=== PATIENT | female | born 1980 | race Caucasian/White ===

== ENCOUNTER 2016-11-21 15:19 | Emergency (ER) | payer MEDICAID ==
[~2016-11-21] VITALS: Ht 170.2 cm; Wt 81.8 kg
[~2016-11-21 15:19] MED LIST: AMOXICILLIN 50500 MG PO; CEPHALEXIN500 M1 PO; COLACE 100100 MG/CAP PO; LEVOXYL0.075 MG PO; NIGHT-TIME COL300 ML PO; NO HOME MEDICATIONS; NORCO 325 MG-51 TAB PO; NORCO 325 MG-7.1 TAB PO; OMNICEF 300MG300 MG PO; OXYCODONE5 M1 PO; PERCOCET 325 MG1 TA2 PO; PRENATAL1 TA2 PO; PYRIDIUM200 M1 PO; ZOFRAN 4MG T4 MG/TAB PO; ZOFRAN ODT4 MG PO
[2016-11-21 15:21] VITALS: BP 126/72; PULSE 68; TEMP 98.5
[2016-11-21] MEDS ORDERED: SYNTHROID0.05 MG/TA PO (15:23)
[2016-11-21] MEDS ORDERED: ADIPEX-P37.5 MG PO (15:23)
[2016-11-21] MEDS ORDERED: ILOTYCIN5 MG/GM OP (15:45)
[2016-11-21] MEDS ORDERED: FLUOCINOLONE ACE1 TU TP (22:02)
[2017-02-11] MEDS ORDERED: WELLBUTRIN XL150 MG PO (13:41)
[2017-02-11] MEDS ORDERED: ADIPEX-P37.5 MG PO (17:37)
== END 2016-11-21 15:50 | disposition home or self-care (01) ==
LOC: COL.ER 15:19
DX: H01.001 Unspecified blepharitis right upper eyelid (principal)

== ENCOUNTER 2016-11-21 21:26 | Emergency (ER) | payer MEDICAID ==
[~2016-11-21] VITALS: Ht 170.2 cm; Wt 84.1 kg
[~2016-11-21 21:26] MED LIST changes: +ADIPEX-P37.5 MG PO; +ILOTYCIN5 MG/GM OP; +SYNTHROID0.05 MG/TA PO
[2016-11-21 21:27] VITALS: TEMP 98.7
[2016-11-21] MEDS ORDERED: FLUOCINOLONE ACE1 TU TP (22:02)
[2016-11-21 22:10] VITALS: BP 130/80; PULSE 67
[2017-02-11] MEDS ORDERED: WELLBUTRIN XL150 MG PO (13:41)
[2017-02-11] MEDS ORDERED: ADIPEX-P37.5 MG PO (17:37)
== END 2016-11-21 22:11 | disposition home or self-care (01) ==
LOC: COL.ER 21:26
DX: L25.0 Unspecified contact dermatitis due to cosmetics (principal); H01.111 Allergic dermatitis of right upper eyelid

== ENCOUNTER → 2017-02-11 | Outpatient (CLI) | payer MEDICAID ==
[~2017-02-11] VITALS: Ht 170.2 cm; Wt 84.4 kg
[~2017-02-11] MED LIST changes: +FLEXERIL 1010 MG/TAB PO; +FLUOCINOLONE ACE1 TU TP; +WELLBUTRIN XL150 MG PO
[2017-02-11 13:42] VITALS: BP 120/70; PULSE 68
== END ==
LOC: LIGHT 13:20
DX: E03.9 Hypothyroidism, unspecified (principal); F32.89 Other specified depressive episodes; E66.3 Overweight; Z68.29 Body mass index [BMI] 29.0-29.9, adult; Z71.3 Dietary counseling and surveillance; K59.00 Constipation, unspecified

== ENCOUNTER → 2017-03-02 | Outpatient (CLI) | payer MEDICAID ==
[~2017-03-02] VITALS: Ht 170.2 cm; Wt 80.5 kg
== END ==
LOC: LIGHT 13:37
DX: E66.3 Overweight (principal); Z68.29 Body mass index [BMI] 29.0-29.9, adult

== ENCOUNTER 2017-03-11 16:05 | Emergency (ER) | payer MEDICAID ==
[~2017-03-11] VITALS: Ht 170.2 cm; Wt 80.0 kg
[~2017-03-11 16:05] MED LIST changes: -FLEXERIL 1010 MG/TAB PO
[2017-03-11 16:10] VITALS: BP 118/66; TEMP 97.6
[2017-03-11 16:50] LABS: PH 5 (5-8); SQUAMOUS EPITHELIAL 0-2 /hpf; URINE APPEARANCE Hazy; URINE BACTERIA None Seen /hpf; URINE BILIRUBIN Negative (NEGATIVE); URINE BLOOD Negative (NEGATIVE); URINE COLOR Yellow; URINE GLUCOSE Negative (NEGATIVE); URINE KETONE Trace (NEGATIVE); URINE RBC 0-2 /hpf; URINE WBC 0-2 /hpf
[2017-03-11] MEDS ORDERED: FLEXERIL 1010 MG/TAB PO (16:53)
[2017-03-11 17:16] VITALS: PULSE 68
== END 2017-03-11 17:17 | disposition home or self-care (01) ==
LOC: COL.ER 16:05
PROVIDERS: Nurse Practitioner
DX: S39.012A Strain of muscle, fascia and tendon of lower back, initial encounter (principal); E03.9 Hypothyroidism, unspecified; Z98.51 Tubal ligation status; Z90.49 Acquired absence of other specified parts of digestive tract; Z98.818 Other dental procedure status; X50.0XXA Overexertion from strenuous movement or load, initial encounter
CPT/HCPCS: J1885; J2360

== ENCOUNTER 2017-03-18 03:48 | Emergency (ER) | payer MEDICAID ==
[~2017-03-18] VITALS: Ht 170.2 cm; Wt 80.6 kg
[~2017-03-18 03:48] MED LIST changes: +FLEXERIL 1010 MG/TAB PO
[2017-03-18 03:49] VITALS: TEMP 97.6
[2017-03-18 04:24] LABS: BASO % 0.5 % (0.0-2.0); EOS # 0.1 (0.0-0.7); EOS % 1.3 % (0-4.0); GRAN # 3.3 (1.4-6.5); HEMATOCRIT 38.8 % (37.0-47.0); HEMOGLOBIN 12.7 g/dl (12.5-16.0); LYMPH # 1.8 (1.2-3.4); LYMPH % 31.6 % (20.0-51.0); MEAN CELL VOLUME 88 fl (80.0-100.0); MEAN CORPUSCULAR HEMOGLOBIN 29 pg (27.0-31.0); MEAN CORPUSCULAR HGB CONC 33 g/dl (33.0-37.0); MONO # 0.4 (0.1-0.6); MONO % 7.4 % (1.7-9.3); PLATELET COUNT 208 K/mm3 (130-400); RED BLOOD COUNT 4.42 M/mm3 (4.10-5.30); REDCELL DISTRIBUTION WIDTH-CV 12.2 % (11.5-14.5); WHITE BLOOD COUNT 5.6 K/mm3 (4.8-10.8)
[2017-03-18 04:35] LABS: ADJUSTED CALCIUM 9.5 mg/dL (8.4-10.2); ALANINE AMINOTRANSFERASE 23 U/L (9-52); ALBUMIN 4.1 gm/dL (3.5-5.0); ALKALINE PHOSPHATASE 63 U/L (50-136); ANION GAP 9 mmol/L (7-16); BILIRUBIN,TOTAL 0.6 mg/dL (0.0-1.0); BLOOD UREA NITROGEN 9 mg/dL (7-17); CALCIUM 9.6 mg/dL (8.4-10.2); CARBON DIOXIDE 27 mmol/L (22-30); CHLORIDE 103 mmol/L (98-107); CREATININE, serum 0.68 mg/dL (0.52-1.25); GLUCOSE 94 mg/dL (74-106); POTASSIUM 4.1 mmol/L (3.4-5.0); SODIUM 139 mmol/L (137-145); TOTAL PROTEIN 7.1 gm/dL (6.4-8.2)
[2017-03-18 04:36] LABS: PH 5 (5-8); SQUAMOUS EPITHELIAL 0-2 /hpf; URINE APPEARANCE Clear; URINE BACTERIA Rare /hpf; URINE BILIRUBIN Negative (NEGATIVE); URINE BLOOD Negative (NEGATIVE); URINE COLOR Yellow; URINE GLUCOSE Negative (NEGATIVE); URINE KETONE Negative (NEGATIVE); URINE RBC None Seen /hpf; URINE UROBILINOGEN Negative (NEGATIVE); URINE WBC 0-2 /hpf
[2017-03-18 04:46] LABS: TROPONIN-I < 0.012 ng/mL (0.000-0.034)
[2017-03-18 04:52] LABS: LIPASE 88 U/L (23-300)
[2017-03-18 05:38] VITALS: BP 104/74; PULSE 71
[2017-04-29] MEDS ORDERED: COLACE 100100 MG/CAP PO (16:33)
[2017-04-29] MEDS ORDERED: AZOR 5 MG-40 MG1 TAB PO (16:35)
== END 2017-03-18 05:37 | disposition home or self-care (01) ==
LOC: COL.ER 03:48
PROVIDERS: Emergency Medicine
DX: R10.13 Epigastric pain (principal); R07.89 Other chest pain; R19.7 Diarrhea, unspecified; R20.2 Paresthesia of skin; E03.9 Hypothyroidism, unspecified; Z87.19 Personal history of other diseases of the digestive system; Z90.49 Acquired absence of other specified parts of digestive tract; Z98.51 Tubal ligation status; Z98.818 Other dental procedure status; Z98.890 Other specified postprocedural states

== ENCOUNTER → 2017-03-25 | Outpatient (CLI) | payer MEDICAID ==
[~2017-03-25] VITALS: Ht 170.2 cm; Wt 80.5 kg
[~2017-03-25] MED LIST changes: +AZOR 5 MG-40 MG1 TAB PO
[2017-03-25 15:37] VITALS: BP 110/70; PULSE 80
== END ==
LOC: LIGHT 15:20
DX: E03.9 Hypothyroidism, unspecified (principal); F32.89 Other specified depressive episodes; E66.3 Overweight; Z68.27 Body mass index [BMI] 27.0-27.9, adult; Z71.3 Dietary counseling and surveillance; K59.00 Constipation, unspecified

== ENCOUNTER → 2017-04-29 | Outpatient (CLI) | payer MEDICAID ==
[~2017-04-29] VITALS: Ht 170.2 cm; Wt 76.9 kg
[2017-04-29 16:37] VITALS: BP 112/70; PULSE 72
== END ==
LOC: LIGHT 10:13
DX: E03.9 Hypothyroidism, unspecified (principal); F32.89 Other specified depressive episodes; E66.3 Overweight; Z68.26 Body mass index [BMI] 26.0-26.9, adult; Z71.3 Dietary counseling and surveillance; K59.00 Constipation, unspecified

== ENCOUNTER 2017-05-09 04:32 | Emergency (ER) | payer MEDICAID ==
[~2017-05-09] VITALS: Ht 170.2 cm; Wt 76.7 kg
[2017-05-09 04:35] VITALS: TEMP 97.5
[2017-05-09] MEDS ORDERED: ADIPEX-P37.5 MG PO (04:40)
[2017-05-09 06:46] VITALS: BP 110/76; PULSE 76
== END 2017-05-09 06:45 | disposition home or self-care (01) ==
LOC: COL.ER 04:32
DX: K62.3 Rectal prolapse (principal); K59.00 Constipation, unspecified

== ENCOUNTER → 2017-06-03 | Outpatient (CLI) | payer MEDICAID ==
[~2017-06-03] VITALS: Ht 170.2 cm; Wt 75.7 kg
[~2017-06-03] MED LIST changes: +AMITIZA 8MCG8 MCG PO; +LINZESS290CAP PO; +ZOLOFT 50MG50 MG PO
[2017-06-14 16:15] VITALS: BP 114/80; PULSE 88
== END ==
LOC: LIGHT 10:51
DX: E03.9 Hypothyroidism, unspecified (principal); F32.9 Major depressive disorder, single episode, unspecified; E66.3 Overweight; Z71.3 Dietary counseling and surveillance; K59.00 Constipation, unspecified

== ENCOUNTER 2017-06-21 13:13 | Day surgery (SDC) | payer MEDICAID ==
[~2017-06-21] VITALS: Ht 170.2 cm; Wt 74.0 kg
[~2017-06-21 13:13] MED LIST changes: -LINZESS290CAP PO
[2017-06-21 14:09] VITALS: BP 111/76; PULSE 81; TEMP 97.6
[2017-06-21 15:13] VITALS: BP 113/70; PULSE 75
[2017-06-21 16:00] VITALS: BP 114/76; PULSE 66; TEMP 98
[2017-06-21 16:15] VITALS: BP 98/83; PULSE 71
[2017-06-21 16:30] VITALS: BP 103/66; PULSE 52
[2017-06-21 16:45] VITALS: BP 107/70; PULSE 65
[2017-06-21] MEDS ORDERED: LINZESS290CAP PO (17:18)
== END 2017-06-21 17:13 | disposition home or self-care (01) ==
LOC: SDCO 13:13
DX: K59.00 Constipation, unspecified (principal); R19.4 Change in bowel habit; R11.0 Nausea; R14.0 Abdominal distension (gaseous); F32.9 Major depressive disorder, single episode, unspecified
CPT/HCPCS: J2250; J2405; J3010

== ENCOUNTER → 2017-08-05 | Outpatient (CLI) | payer MEDICAID ==
[~2017-08-05] VITALS: Ht 170.2 cm; Wt 76.4 kg
[~2017-08-05] MED LIST changes: +LINZESS290CAP PO
[2017-08-05 15:31] VITALS: BP 102/70; PULSE 72
== END ==
LOC: LIGHT 12:47
DX: E03.9 Hypothyroidism, unspecified (principal); F32.89 Other specified depressive episodes; E66.3 Overweight; Z68.26 Body mass index [BMI] 26.0-26.9, adult; Z71.3 Dietary counseling and surveillance; K59.00 Constipation, unspecified
CPT/HCPCS: G0463

== ENCOUNTER → 2017-09-09 | Outpatient (CLI) | payer MEDICAID ==
[~2017-09-09] VITALS: Ht 170.2 cm; Wt 77.3 kg
[2017-09-09 09:53] VITALS: BP 110/68; PULSE 80
== END ==
LOC: LIGHT 09:17
DX: E03.9 Hypothyroidism, unspecified (principal); F32.89 Other specified depressive episodes; E66.3 Overweight; Z68.26 Body mass index [BMI] 26.0-26.9, adult; Z71.3 Dietary counseling and surveillance; K59.00 Constipation, unspecified
CPT/HCPCS: G0463

== ENCOUNTER → 2017-10-07 | Outpatient (CLI) | payer MEDICAID ==
[~2017-10-07] VITALS: Ht 170.2 cm; Wt 78.2 kg
[2017-10-07 11:25] VITALS: BP 96/60; PULSE 64
== END ==
LOC: LIGHT 11:17
DX: E03.9 Hypothyroidism, unspecified (principal); F32.89 Other specified depressive episodes; E66.3 Overweight; Z68.27 Body mass index [BMI] 27.0-27.9, adult; Z71.3 Dietary counseling and surveillance; K59.00 Constipation, unspecified
CPT/HCPCS: G0463

== ENCOUNTER → 2017-11-11 | Outpatient (CLI) | payer MEDICAID ==
[~2017-11-11] VITALS: Ht 170.2 cm; Wt 77.1 kg
[2017-11-11 10:48] VITALS: BP 100/60; PULSE 60
== END ==
LOC: LIGHT 09:17
DX: E03.9 Hypothyroidism, unspecified (principal); F32.89 Other specified depressive episodes; E66.3 Overweight; Z68.26 Body mass index [BMI] 26.0-26.9, adult; Z71.3 Dietary counseling and surveillance; K59.00 Constipation, unspecified
CPT/HCPCS: G0463

== ENCOUNTER → 2018-03-03 | Outpatient (CLI) | payer MEDICAID ==
[~2018-03-03] VITALS: Ht 170.2 cm; Wt 80.7 kg
[2018-03-03 13:46] VITALS: BP 106/70; PULSE 76
== END ==
LOC: LIGHT 13:22
DX: E03.9 Hypothyroidism, unspecified (principal); F32.9 Major depressive disorder, single episode, unspecified; K59.00 Constipation, unspecified; E66.3 Overweight; Z68.27 Body mass index [BMI] 27.0-27.9, adult; Z71.3 Dietary counseling and surveillance
CPT/HCPCS: G0463

== ENCOUNTER → 2018-06-09 | Outpatient (CLI) | payer MEDICAID ==
[2018-05-02 14:21] VITALS: BP 118/62; PULSE 72
[~2018-06-09] VITALS: Ht 170.2 cm; Wt 80.5 kg
[2018-06-09 09:38] VITALS: BP 100/70; PULSE 72
== END ==
LOC: LIGHT 04-14 11:45
DX: E03.9 Hypothyroidism, unspecified (principal); F32.9 Major depressive disorder, single episode, unspecified; E66.9 Obesity, unspecified; Z68.27 Body mass index [BMI] 27.0-27.9, adult; Z71.3 Dietary counseling and surveillance
CPT/HCPCS: G0463

== ENCOUNTER 2018-09-26 02:58 | Emergency (ER) | payer MEDICAID ==
[~2018-09-26] VITALS: Ht 170.2 cm; Wt 85.5 kg
[2018-09-26 03:06] VITALS: BP 129/84; PULSE 72; TEMP 98.4
== END 2018-09-26 04:19 | disposition home or self-care (01) ==
LOC: COL.ER 02:58
DX: J02.9 Acute pharyngitis, unspecified (principal); B34.9 Viral infection, unspecified; E03.9 Hypothyroidism, unspecified; Z90.49 Acquired absence of other specified parts of digestive tract

== ENCOUNTER 2018-12-22 04:57 | Emergency (ER) | payer MEDICAID ==
[~2018-12-22] VITALS: Ht 170.2 cm; Wt 90.0 kg
[2018-12-22 05:05] VITALS: BP 116/70; TEMP 98.8
[2018-12-22] MEDS ORDERED: LEXAPRO20 MG PO (06:19)
[2018-12-22] MEDS ORDERED: CEPHALEXIN500 M1 PO (06:22)
[2018-12-22 06:49] VITALS: PULSE 70
== END 2018-12-22 06:43 | disposition home or self-care (01) ==
LOC: COL.ER 04:57
DX: L08.9 Local infection of the skin and subcutaneous tissue, unspecified (principal); E03.9 Hypothyroidism, unspecified; F32.9 Major depressive disorder, single episode, unspecified; F41.9 Anxiety disorder, unspecified; Z90.49 Acquired absence of other specified parts of digestive tract; Z98.51 Tubal ligation status

== ENCOUNTER 2018-12-25 04:34 | Emergency (ER) | payer MEDICAID ==
[~2018-12-25] VITALS: Ht 170.2 cm; Wt 90.0 kg
[~2018-12-25 04:34] MED LIST changes: +LEXAPRO20 MG PO
[2018-12-25 04:37] VITALS: BP 132/73; TEMP 97.5
[2018-12-25] MEDS ORDERED: FLEXERIL 1010 MG/TAB PO (04:50)
[2018-12-25 05:23] VITALS: PULSE 84
== END 2018-12-25 05:23 | disposition home or self-care (01) ==
LOC: COL.ER 04:34
DX: M54.2 Cervicalgia (principal); E03.9 Hypothyroidism, unspecified; Z98.890 Other specified postprocedural states

== ENCOUNTER → 2020-01-18 | Outpatient (CLI) | payer MEDICAID ==
[~2020-01-18] VITALS: Ht 170.2 cm; Wt 97.3 kg
[~2020-01-18] MED LIST changes: +ADIPEX-P37.5 M2 PO; +DESYREL 50MG50 MG PO
[2020-01-18 09:11] VITALS: BP 104/60; PULSE 72
== END ==
LOC: LIGHT 07-14 11:30
DX: E66.8 Other obesity (principal); Z68.33 Body mass index [BMI] 33.0-33.9, adult; E03.9 Hypothyroidism, unspecified
CPT/HCPCS: G0463

== ENCOUNTER → 2020-02-22 | Outpatient (CLI) | payer MEDICAID ==
[~2020-02-22] VITALS: Ht 170.2 cm; Wt 91.9 kg
[2020-02-22 11:31] VITALS: BP 106/70; PULSE 64
== END ==
LOC: LIGHT 11:27
DX: E66.8 Other obesity (principal); Z68.31 Body mass index [BMI] 31.0-31.9, adult; E03.9 Hypothyroidism, unspecified
CPT/HCPCS: G0463

== ENCOUNTER → 2020-03-28 | Outpatient (CLI) | payer MEDICAID ==
[~2020-03-28] VITALS: Ht 170.2 cm; Wt 89.1 kg
[2020-03-28 10:34] VITALS: BP 116/76; PULSE 64
== END ==
LOC: LIGHT 10:22
DX: E66.8 Other obesity (principal); Z68.30 Body mass index [BMI] 30.0-30.9, adult; E03.9 Hypothyroidism, unspecified; F32.9 Major depressive disorder, single episode, unspecified
CPT/HCPCS: G0463

== ENCOUNTER → 2020-05-23 | Outpatient (CLI) | payer MEDICAID ==
[~2020-05-23] VITALS: Ht 170.2 cm; Wt 88.2 kg
[~2020-05-23] MED LIST changes: +BUSPAR10 MG PO; +WELLBUTRIN XL300 M1 PO; +XANAX .25M0.25 MG/TA PO
[2020-05-23 15:09] VITALS: BP 120/74; PULSE 80
== END ==
LOC: LIGHT 14:42
DX: E66.8 Other obesity (principal); Z68.30 Body mass index [BMI] 30.0-30.9, adult; E03.9 Hypothyroidism, unspecified
CPT/HCPCS: G0463

== ENCOUNTER → 2021-02-24 | Outpatient (CLI) | payer MEDICAID | LOC: COL.RAD 10:42 | DX: G25.0 Essential tremor (principal) ==

== ENCOUNTER 2021-11-01 03:56 | Emergency (ER) | payer MEDICAID ==
[~2021-11-01] VITALS: Ht 170.2 cm; Wt 84.5 kg
[2021-11-01 04:45] LABS: BASO % 0.3 % (0.0-2.0); EOS % 0.1 % (0.0-4.0); GRAN # 7.9 K/mm3 (1.4-6.5); GRAN % 80.2 % (42.2-75.2); HEMOGLOBIN 10.7 g/dl (12.5-16.0); LYMPH # 1.4 K/mm3 (1.2-3.4); LYMPH % 13.7 % (20.0-51.0); MEAN CELL VOLUME 81 fl (80.0-100.0); MEAN CORPUSCULAR HEMOGLOBIN 26 pg (27-31); MEAN CORPUSCULAR HGB CONC 32 g/dl (33.0-37.0); MEAN PLATELET VOLUME 10.3 fl (7.4-10.4); MONO # 0.5 K/mm3 (0.1-0.6); MONO % 5.4 % (1.7-9.3); PLATELET COUNT 302 K/mm3 (130-400); REDCELL DISTRIBUTION WIDTH-CV 13.7 % (11.5-14.5)
[2021-11-01 04:49] LABS: COLLECTION METHOD CLEAN CATCH
[2021-11-01 04:50] LABS: HEMATOCRIT 33.8 % (37.0-47.0)
[2021-11-01 04:55] LABS: MUCOUS Present (NOT PRESENT); PH 6 (5-8); SQUAMOUS EPITHELIAL 0-2 /hpf (0-10); URINE APPEARANCE Clear (CLEAR/HAZY); URINE BACTERIA Rare /hpf (NONE SEEN); URINE BILIRUBIN Negative (NEGATIVE); URINE BLOOD Negative (NEGATIVE); URINE COLOR Yellow (YELLOW); URINE GLUCOSE Negative (NEGATIVE); URINE KETONE Negative (NEGATIVE); URINE LEUKOCYTE ESTERASE Negative (NEGATIVE); URINE NITRATE Negative (NEGATIVE); URINE PROTEIN(semi-quant) 1+ (NEGATIVE); URINE RBC 0-2 /hpf (0-2); URINE UROBILINOGEN Negative (NEGATIVE)
[2021-11-01 05:00] LABS: ALBUMIN 3.9 gm/dL (3.5-5.0); BILIRUBIN,TOTAL 0.5 mg/dL (0.2-1.2); CREATININE, serum 0.7 mg/dL (0.57-1.11); TOTAL PROTEIN 7.1 gm/dL (6.2-8.1)
[2021-11-01] MEDS ORDERED: ZOFRAN ODT4 MG PO (05:22)
[2021-11-01] MEDS ORDERED: PEPCID 20MG TAB20 MG PO (05:22)
[2021-11-01 05:40] LABS: GASTROCCULT NEGATIVE; pH GASTRIC CONTENTS 4
[2021-11-01 05:50] VITALS: BP 111/65; PULSE 79; TEMP 98.1
== END 2021-11-01 05:50 | disposition home or self-care (01) ==
LOC: COL.ER 03:56
PROVIDERS: Emergency Medicine
DX: R11.2 Nausea with vomiting, unspecified (principal); D64.9 Anemia, unspecified; Z20.822 Contact with and (suspected) exposure to COVID-19
CPT/HCPCS: J2405; J7120

== ENCOUNTER 2022-12-07 07:28 | Emergency (ER) | payer MEDICAID ==
[~2022-12-07] VITALS: Ht 170.2 cm; Wt 104.5 kg
[~2022-12-07 07:28] MED LIST changes: +PEPCID 20MG TAB20 MG PO
[2022-12-07 07:54] LABS: STREP SCREEN NEGATIVE
[2022-12-07 08:23] VITALS: BP 112/78; PULSE 82; TEMP 98.3
== END 2022-12-07 08:24 | disposition home or self-care (01) ==
LOC: COL.ER 07:28
PROVIDERS: Emergency Medicine
DX: J06.9 Acute upper respiratory infection, unspecified (principal); Z28.310 Unvaccinated for COVID-19